=== PATIENT | female | born 1965 | race Caucasian/White ===

== ENCOUNTER 2017-05-15 10:24 | Emergency (ER) | payer OTHER | END 2017-05-15 11:03 | disposition home or self-care (01) | LOC: FTE 10:24 → E/R 11:03 | DX: H60.501 Unspecified acute noninfective otitis externa, right ear (principal); J02.8 Acute pharyngitis due to other specified organisms; B96.89 Other specified bacterial agents as the cause of diseases classified elsewhere | CPT/HCPCS: 99283 ==

== ENCOUNTER 2018-03-06 15:31 | Emergency (ER) | payer OTHER | END 2018-03-06 17:27 | disposition home or self-care (01) | LOC: FTE 15:31 | DX: M62.838 Other muscle spasm (principal) | CPT/HCPCS: 99283; Z7502 ==